=== PATIENT | female | born 1990 | race Two or more races ===

== ENCOUNTER → 2017-03-03 | Outpatient (CLI) | payer SELFPAY ==
--- NOTE | 2017-03-03 15:22 | RADIOLOGY REPORT (SQ) ---
EXAM DESCRIPTION: U/S OB 14+ TRNABD 1GES W/O DOP COMPLETED DATE/TIME: 03/03/2017 11:35 am REASON FOR STUDY: ENCTR FOR SUPERVISION OF NORMAL 1ST , 2ND TRIMESTER (Z34.02) Z34.02 ENCN TR FOR SUPRVSN OF NORMAL FIRST PREG, SECOND TRIME COMPARISON: None. TECHNIQUE: Static and Dynamic grayscale imaging performed of gravid uterus using transabdominal appr oach. Additional selected color Doppler and spectral images recorded. All stored on PACS. LIMITATIONS: None. FINDINGS: EGA: 20 weeks 6 days ANTONY: 07/15/2017 EFW: 393 g grams PERCENTILE: Not calculated MEJIA: Largest pocket 4.5 cm PLACENTA: Anterior grade 1 PRESENTATION: Cephalic. ANATOMY: HEART RATE: 152 beats per minute. FOUR CHAMBER HEART: Visualized. THREE VESSEL CORD: Yes. CORD INSERTION: Visualized. KIDNEYS AND BLADDER: Visualized. Appear normal. STOMACH: Visualized. Appears normal. SPINE: Normal as visualized. BRAIN AND LATERAL VENTRICLES: Visualized. Appear normal. OTHER: No other significant finding. MATERNAL ADNEXA: Maternal ovaries not visualized. CERVICAL LENGTH: 3.5 cm in length Closed. OTHER: No other significant finding. IMPRESSION: LIVING INTRAUTERINE . ESTIMATED GESTATIONAL AGE 20 weeks 6 days NO VISUALIZED ANOMALIES. Trimester of : Second trimester - 13 weeks 1 day to 27 weeks 6 days. TECHNICAL DOCUMENTATION: JOB ID: [id number] [employer]- All Rights Reserved
== END ==
LOC: RAD 10:32
PROVIDERS: ATTEND Nurse Practitioner Women's Health
DX: Z34.02 Encounter for supervision of normal first pregnancy, second trimester (principal)
CPT/HCPCS: 76805

== ENCOUNTER → 2017-04-21 | Outpatient (CLI) | payer SELFPAY ==
--- NOTE | 2017-04-21 14:26 | RADIOLOGY REPORT (SQ) ---
EXAM DESCRIPTION: U/S OB 14+ TRNABD 1GES W/O DOP COMPLETED DATE/TIME: 04/21/2017 1:52 pm REASON FOR STUDY: ENCOUNTER FOR SUPERVISON OF OTHER NORMAL PREGANCNY, SECOND TRIMESTER Z34.03 ENCNT R FOR SUPRVSN OF NORMAL FIRST PREG, THIRD TRIMES COMPARISON: 03/03/2017. TECHNIQUE: Limited transabdominal grayscale ultrasound for evaluation of specific requested obstetri zelda parameters. LIMITATIONS: None. FINDINGS: PLACENTA: Anterior. CERVICAL LENGTH: 4.9 cm. Closed. MEJIA: 9.3 cm. FHR: 168 beats per minute. PRESENTATION: Breech. OTHER: No other significant findings. IMPRESSION: LIMITED OBSTETRICAL ULTRASOUND WITH MEASURED PARAMETERS DELINEATED ABOVE. Trimester of : Third trimester - 28 weeks to delivery. TECHNICAL DOCUMENTATION: JOB ID: [id number] [employer]- All Rights Reserved Reading location - IP/workstation name: [email or web address]
== END ==
LOC: RAD 12:57
PROVIDERS: ATTEND Nurse Practitioner Women's Health
DX: Z34.03 Encounter for supervision of normal first pregnancy, third trimester (principal)
CPT/HCPCS: 76805

== ENCOUNTER 2017-07-11 15:55 | Inpatient (IN) | payer SELFPAY ==
[2017-07-11] MEDS ORDERED: RINGERS SOLUTION,LACTATED 1,000 ML IV PRN (16:12)
[2017-07-11 16:39] LABS: APPEARANCE,URINE SLIGHTLY-CLOUDY; BILIRUBIN,URINE NEGATIVE (NEGATIVE); COLOR,URINE YELLOW; GLUCOSE, URINE NEGATIVE (NEGATIVE); KETONES,URINE TRACE mg/dL (NEGATIVE); LEUKOCYTE ESTERASE,URINE NEGATIVE (NEGATIVE); NITRITE,URINE NEGATIVE (NEGATIVE); PROTEIN,URINE NEGATIVE (NEGATIVE); URINE SPECIFIC GRAVITY 1.005; UROBILINOGEN,URINE NEGATIVE mg/dL (<2.0)
[2017-07-11 16:54] LABS: ABSOLUTE EOSINOPHILS # (AUTO) 0.1 10^3/uL (0.0-0.6); ABSOLUTE LYMPHOCYTES (AUTO) 1.7 10^3/uL (0.5-4.7); ABSOLUTE MONOCYTES (AUTO) 0.5 10^3/uL (0.1-1.4); ABSOLUTE NEUT (AUTO) 5.9 10^3/uL (1.7-8.2); BASOPHILS % (AUTO) 0.4 % (0-2); EOSINOPHILS % (AUTO) 0.9 % (0-6); HEMATOCRIT 34.3 % (36.0-47.0); HEMOGLOBIN 11.6 g/dL (12.0-15.5); LYMPHOCYTES % (AUTO) 20.8 % (13-45); MEAN CORPUSCULAR HGB CONC 33.7 g/dL (32.0-36.0); MEAN CORPUSCULAR VOLUME 86 fl (80-97); MONOCYTES % (AUTO) 5.7 % (3-13); PLATELET COUNT 305 10^3/uL (150-450); RED BLOOD COUNT 3.99 10^6/uL (3.72-5.28); RED CELL DISTRIBUTION WIDTH 13.7 % (11.5-14.0); SEGMENTED NEUTROPHILS % (AUTO) 72.2 % (42-78); TOTAL CELLS COUNTED % (AUTO) 100 %; WHITE BLOOD COUNT 8.2 10^3/uL (4.0-10.5)
[2017-07-11 16:56] LABS: URINE AMPHETAMINES SCREEN NEGATIVE; URINE BARBITURATES SCREEN NEGATIVE; URINE BENZODIAZEPINES SCREEN NEGATIVE; URINE COCAINE SCREEN NEGATIVE; URINE MARIJUANA (THC) SCREEN NEGATIVE; URINE METHADONE SCREEN NEGATIVE; URINE PHENCYCLIDINE SCREEN NEGATIVE
[2017-07-11] MEDS ORDERED: MISOPROSTOL 0.2 MG TABLET PR PRN (18:08)
[2017-07-11] MEDS ORDERED: LIDOCAINE 1% INJ-PF (10 MG/ML) 30 ML SDV INJ PRN (18:08)
[2017-07-11] MEDS ORDERED: OXYTOCIN/NORMAL SALINE 20 UNIT/1,000 ML RTUINJ IV PRN (18:10)
[2017-07-11] MEDS ORDERED: OXYTOCIN/NORMAL SALINE 20 UNIT/1,000 ML RTUINJ ONE ×2 (19:11→20:24)
[2017-07-11] MEDS: OXYTOCIN/NORMAL SALINE 20 UNIT/1,000 ML RTUINJ IV PRN (19:36)
[2017-07-11] MEDS ORDERED: MISOPROSTOL 0.2 MG TABLET ONE (20:23)
[2017-07-11] MEDS ORDERED: LIDOCAINE 1% INJ-PF (10 MG/ML) 30 ML SDV ONE (20:24)
[2017-07-11] MEDS ORDERED: PROMETHAZINE HCL INJ 25 MG/1 ML VIAL ONE (23:36)
[2017-07-11] MEDS ORDERED: NALBUPHINE HCL INJ 10 MG/1 ML AMPULE ONE (23:36)
[2017-07-11] MEDS ORDERED: PROMETHAZINE HCL INJ 25 MG/1 ML VIAL IV ONE (23:43)
[2017-07-11] MEDS ORDERED: NALBUPHINE HCL INJ 10 MG/1 ML AMPULE INJ ONE (23:43)
--- NOTE | 2017-07-12 04:47 | Admission Physical ---
Datetime Report Generated by CPN: 07/12/2017 04:47 CURRENT ADMISSION Chief Complaint: Uterine Contractions; Suspected Ruptured Membranes Indication for Induction: PROM Admit Impression : Term, Intrauterine ; No Active Labor; Ruptured Membranes Admit Plan: Admit to Unit; Initiate Labor Induction Protocol ALLERGIES Medication Allergies: Yes Medication Allergies: doxycycline (07/11/2017) Latex: No Latex Allergies OBSTETRICAL HISTORY EDC: 07/13/2017 00:00 : 1 Para: 0 Term: 0 : 0 SAB: 0 IAB: 0 Ectopic: 0 Livin Cesareans: 0 VBACs: 0 Multiple Births: 0 Gestational Diabetes: No Rh Sensitization: No Incompetent Cervix: No CUAUHTEMOC: No Infertility: No ART Treatment: No Uterine Anomaly: No IUGR: No Hx Previous C/S: No Macrosomia: No Hx Loss/Stillborn: No PIH: No Hx : No Placenta Previa/Abruption: No Depression/PP Depression: No PTL/PROM: No Post Hemorrhage: No Current Procedures: Ultrasound Obstetrical History Comments: G1-Current SEE RECORDS Alcohol: No Marijuana : No Cocaine: No Other Illicit Drugs: No Cigarettes: Never Smoker. 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: No Heart Disease: No Hosp/Surgery: No Autoimmune Disorder: No Anesthetic Complications: No Kidney Disease: No Abnormal Pap Smear: Yes Neuro/Epilepsy: No Psychiatric Disorders: No Other Medical Diseases: No Hepatitis/Liver Disease: No Significant Family History: No Varicosities/Phlebitis: No Trauma/Violence : No Thyroid Dysfunction: No INFECTIOUS HISTORY Gonorrhea: No Genital Herpes: No Chlamydia: No Tuberculosis: No Syphilis: No Hepatitis: No HIV/AIDS Exposure: No Rash or Viral Illness: No HPV: No PHYSICAL EXAM General: Normal HEENT: Normal Neurologic: Normal Thyroid: Normal Heart: Normal Lungs: Normal Breast: Normal Back: Normal Abdomen: Normal Genitourinary Exam: Normal Extremities: Normal DTRs: Normal Pelvic Type: Adequate Vital Signs: Reviewed; Within Normal Limits VAGINAL EXAM Dilatation: 2 Effacement: 50 Station: -2 MEMBRANES Pooling: Positive Membranes: Ruptured Amniotic Fluid Color: Clear FETUS A EGA: 39.5 Monitoring: External US FHR- Baseline: 130 Variability: Moderate 6-25bpm Accelerations: 15X15 Decelerations: None FHR Category: Category I Estimated Weight (gm): 3800 Presentation: Vertex PLANS FOR LABOR AND DELIVERY Labor and Delivery: None Pain Management: None Feeding Preference: Both Benefit of Breast Feed Discussed: Yes Circumcision: N/A INFORMED CONSENT Signature: with User ID: Ruben
[2017-07-12] MEDS ORDERED: PROMETHAZINE HCL INJ 25 MG/1 ML VIAL IV PRN (04:53)
[2017-07-12] MEDS ORDERED: MEASLES,MUMPS&RUBELLA VACC/PF 0.5 ML VIAL SUBCUT PRN (04:53)
[2017-07-12] MEDS ORDERED: MAGNESIUM HYDROXIDE SUSP 30 ML UDCUP PO PRN (04:53)
[2017-07-12] MEDS ORDERED: DIBUCAINE 1% OINTMENT 28 GM TP PRN (04:53)
[2017-07-12] MEDS ORDERED: BENZOCAINE/MENTHOL AEROSOL SPRAY 56 ML TOP PRN (04:53)
[2017-07-12] MEDS ORDERED: ACETAMINOPHEN WITH CODEINE #3 TABLET PO PRN ×2 (04:53)
[2017-07-12] MEDS ORDERED: PSEUDOEPHEDRINE HCL 30 MG TABLET PO PRN (04:53)
[2017-07-12] MEDS ORDERED: PROMETHAZINE HCL 25 MG SUPP.RECT PR PRN (04:53)
[2017-07-12] MEDS ORDERED: NA PHOS,M-B/NA PHOS,DI-BA (ADULT) 133 ML ENEMA PR PRN (04:53)
[2017-07-12] MEDS ORDERED: ZOLPIDEM TARTRATE 5 MG TABLET PO PRN (04:53)
[2017-07-12] MEDS ORDERED: DIPHENHYDRAMINE HCL 25 MG CAPSULE PO PRN (04:53)
[2017-07-12] MEDS ORDERED: ACETAMINOPHEN 650 MG SUPP.RECT PR PRN (04:53)
[2017-07-12] MEDS ORDERED: GLYCERIN/WITCH HAZEL LEAF 1 EACH MED..PAD TP PRN (04:53)
[2017-07-12] MEDS ORDERED: OXYTOCIN/NORMAL SALINE 20 UNIT/1,000 ML RTUINJ IV PRN (04:53)
[2017-07-12] MEDS ORDERED: PROMETHAZINE HCL 25 MG TABLET PO PRN (04:53)
[2017-07-12] MEDS ORDERED: DIPH/PERTUSS(ACELL)/TETANUS VAC/PF 0.5 ML SYR (>=10YO) IM PRN (04:53)
[2017-07-12] MEDS: OXYTOCIN/NORMAL SALINE 20 UNIT/1,000 ML RTUINJ IV PRN (05:54)
[2017-07-12] MEDS: IBUPROFEN 800 MG TABLET PO SCH ×3 (05:54→22:11)
--- NOTE | 2017-07-12 06:12 | Warning Signs in Babies ---
VOD Warning Signs Datetime Report Generated by [facility]: 07/12/2017 06:11 VOD#608 -Warning Signs in Babies: Viewed with Parent(s)/Family (07/11/2017 16:08:Gillian Gordillo RN)
[2017-07-12] MEDS ORDERED: IBUPROFEN 800 MG TABLET ONE (06:56)
--- NOTE | 2017-07-12 09:27 | PDOC PROGRESS REPORT ---
Subjective-OB Progress Note for:: 07/12/17 Subjective: Day #0 s/p voiding without difficultly, lochia is stable, pain well controlled, denies concerns, bonding well with baby. Physical Exam (OB) Vital Signs: Temp Pulse Resp BP Pulse Ox 98.2 F 86 20 108/57 L 98 07/12/17 08:23 07/12/17 08:23 07/12/17 08:23 07/12/17 08:23 07/12/17 08:23 Intake & Output 07/11/17 07/12/17 07/13/17 06:59 06:59 06:59 Weight 72.575 kg - Lochia Lochia Amount: Small 10-25 ml Lochia Color: Rubra/Red - Abdomen Description: Soft Fundal Description: Firm Fundal Height: u/u - u/2 Objective-Diagnostic Laboratory: 07/11/17 16:34 07/11/17 07/11/17 07/11/17 16:00 16:34 16:34 WBC 8.2 RBC 3.99 Hgb 11.6 L Hct 34.3 L MCV 86 MCH 29.0 MCHC 33.7 RDW 13.7 Plt Count 305 Seg Neutrophils % 72.2 Lymphocytes % 20.8 Monocytes % 5.7 Eosinophils % 0.9 Basophils % 0.4 Absolute Neutrophils 5.9 Absolute Lymphocytes 1.7 Absolute Monocytes 0.5 Absolute Eosinophils 0.1 Absolute Basophils 0.0 Urine Color YELLOW Urine Appearance SLIGHTLY-CLOUDY Urine pH 6.0 Ur Specific [place] 1.005 Urine Protein NEGATIVE Urine Glucose (UA) NEGATIVE Urine Ketones TRACE H Urine Blood MODERATE H Urine Nitrite NEGATIVE Ur Leukocyte Esterase NEGATIVE Blood Type A NEGATIVE Antibody Screen POSITIVE Assessment and Plan(PN) - Assessment and Plan (1) Vaginal delivery Is this a current diagnosis for this admission?: Yes Plan: routine pp care (2) Rh negative status during Qualifiers: Trimester: third trimester Qualified Code(s): O09.893 - Supervision of other high risk pregnancies, third trimester; Z67.91 - Unspecified blood type, Rh negative; Z67.91 - Unspecified blood type, Rh negative Is this a current diagnosis for this admission?: Yes Plan: rhogam as needed - Time Spent with Patient Time with patient: Less than 15 minutes Critical Time spent with patient: Less than 15 minutes Medications reviewed and adjusted accordingly: Yes - Disposition Anticipated Discharge: Home Within: within 24 hours
--- NOTE | 2017-07-12 09:43 | Delivery Summary ---
Del Sum A-C Datetime Report Generated by CPN: 07/12/2017 09:43 DELIVERY PERSONNEL DELIVERY PERSONNEL: [id number] Delivery Doctor:: Clair Erickson MD Labor and Delivery Nurse:: Gillian Tripathi RN Labor and Delivery Nurse:: Ambreen Roberts RN Nursery Nurse:: Blanca Beth RN Security Ambassador/PRIEST: Jenifer Dc, ST MATERNAL INFORMATION Delivery Anesthesia: None Medications After Delivery: Pitocin Bolus-Please Comment; Pitocin Drip 20 Units/1000ml NSS Estimated Blood Loss (ml): 150 Maternal Complications: None LABOR SUMMARY EDC: 07/13/2017 00:00 No. Babies in Womb: 1 Attempted: No Labor Anesthesia: IV Sedation LABOR INFORMATION Reason for Induction: Not Applicable Onset of Labor: 07/11/2017 15:00 Complete Dilatation: 07/12/2017 03:30 Oxytocin: Augmentation Group B Beta Strep: negative Steroids Given: None Reason Steroids Not Administered: Not Applicable MEMBRANES Membranes Rupture Method: Spontaneous Rupture of Membranes: 07/11/2017 15:03 Length of Rupture (hr): 13.32 Amniotic Fluid Color: Clear Amniotic Fluid Amount: Large Amniotic Fluid Odor: Normal STAGES OF LABOR Stage 1 hr: 12 Stage 1 min: 30 Stage 2 hr: 0 Stage 2 min: 52 Stage 3 hr: -3 Stage 3 min: -56 Total Time in Labor hr: 9 Total Time in Labor min: 26 VAGINAL DELIVERY Episiotomy: Left Mediolateral Laceration #1: Vaginal Laceration Extension #1: Second Degree Laceration Repair: Yes Sponge Count Correct: Yes CSECTION DELIVERY Primary Indication: N/A Secondary Indication: N/A CSection Incision: N/A BABY A INFORMATION Infant Delivery Date/Time: 07/12/2017 04:22 Method of Delivery: Vaginal Born in Route : No : N/A Forceps: N/A Vacuum Extraction: Failed Shoulder Dystocia : No ASSISTED DELIVERY BABY A Indication for Assisted Delivery: maternal exhaustion Catheter Prior to Procedure: No Vacuum Number of Pulls: 0 Vacuum Number of PopOffs: 0 Vacuum/Forceps Comment: failed vaccuum due to hair. unable to obtain suction. PRESENTATION/POSITION BABY A Presentation: Cephalic Cephalic Presentation: Vertex Vertex Position: Left Occipital Anterior Breech Presentation: N/A PLACENTA INFORMATION BABY A Placenta Delivery Time : 07/12/2017 00:26 Placenta Method of Delivery: Spontaneous Placenta Status: Delivered SCORES BABY A Heart Rate 1 min: >100 bpm Resp Effort 1 min: Good Cry Reflex Irritability 1 min: Cough or Sneeze or Pulls Away Muscle Tone 1 min: Active Motion Color 1 min: Blue/Pale SCORE 1 MIN: 8 Heart Rate 5 min: >100 bpm Resp Effort 5 min: Good Cry Reflex Irritability 5 min: Cough or Sneeze or Pulls Away Muscle Tone 5 min: Active Motion Color 5 min: Body [place], Extremities Blue Resuscitation Effort 5 min: Tactile Stimulation SCORE 5 MIN: 9 INFANT INFORMATION BABY A Gestational Age at Delivery: 39.6 Gestational Status: Full Term- 39- 40.6 Weeks Infant Outcome : Liveborn Condition : Stable Sex: Female IDENTIFICATION BABY A Verification Date/Time: 07/12/2017 04:54 ID Band Number: [id number] Mother's Name Verified: Yes RN Verifying : rn carmen Additional Verifying Personnel: rn ring WEIGHT/LENGTH BABY A Birthweight (gm): 3480 Weight (lb): 7 Infant Weight (oz): 11 Length (in): 20.00 Length (cm): 50.80 CORD INFORMATION BABY A No. Cord Vessels: 3 Nuchal Cord : N/A Cord Blood Taken: Yes-For Eval (Mom's Blood Type - or O+) Infant Suction: Mouth ASSESSMENT BABY A Complications: Multiple Variable Decels Physical Findings at Delivery: [place] Infant Respirations: Appears Normal Skin to Skin: Yes Online Marketing Strategist/ALS Called : No Infant Care By: RN Beth Transferred To: Remains with Mother BABY B INFORMATION : N/A SIGNATURES Signature: with User ID: Ruben
[2017-07-12] MEDS ORDERED: DSS PO SCH (10:00)
[2017-07-12] MEDS ORDERED: [UNRECOGNIZED DRUG - OTHER] PO SCH (10:00)
[2017-07-12] MEDS ORDERED: FOLATE PO SCH (10:00)
[2017-07-12] MEDS ORDERED: DHA PO SCH (10:00)
[2017-07-12] MEDS ORDERED: FAMOTIDINE 20 MG TABLET PO SCH (10:00)
[2017-07-12] MEDS ORDERED: PNV PO SCH (10:00)
[2017-07-12] MEDS ORDERED: IRON PO SCH (10:00)
[2017-07-12] MEDS: PRENATAL VITAMIN W DHA CAPSULE PO SCH (10:18)
[2017-07-12] MEDS: DOCUSATE SODIUM 100 MG CAPSULE PO SCH ×2 (10:18→17:17)
[2017-07-12] MEDS: FERROUS SULFATE 325 MG TABLET PO SCH ×2 (10:18→17:17)
[2017-07-12] MEDS: SENNOSIDES/DOCUSATE 8.6-50 MG 1 EACH TABLET PO SCH (10:25)
[2017-07-12] MEDS: FAMOTIDINE 20 MG TABLET PO SCH (22:13)
[2017-07-13] MEDS: IBUPROFEN 800 MG TABLET PO SCH (05:45)
[2017-07-13 07:57] LABS: HEMATOCRIT 32.1 % (36.0-47.0); HEMOGLOBIN 10.4 g/dL (12.0-15.5); MEAN CORPUSCULAR HEMOGLOBIN 28.4 pg (27.0-33.4); MEAN CORPUSCULAR HGB CONC 32.5 g/dL (32.0-36.0); MEAN CORPUSCULAR VOLUME 87 fl (80-97); PLATELET COUNT 320 10^3/uL (150-450); RED BLOOD COUNT 3.68 10^6/uL (3.72-5.28); RED CELL DISTRIBUTION WIDTH 14.4 % (11.5-14.0); WHITE BLOOD COUNT 13.4 10^3/uL (4.0-10.5)
[2017-07-13] MEDS: SENNOSIDES/DOCUSATE 8.6-50 MG 1 EACH TABLET PO SCH (09:12)
[2017-07-13] MEDS: FERROUS SULFATE 325 MG TABLET PO SCH ×2 (09:12→19:33)
[2017-07-13] MEDS: PRENATAL VITAMIN W DHA CAPSULE PO SCH (09:13)
[2017-07-13] MEDS: DOCUSATE SODIUM 100 MG CAPSULE PO SCH ×2 (09:13→19:34)
[2017-07-13] MEDS: FAMOTIDINE 20 MG TABLET PO SCH (09:15)
--- NOTE | 2017-07-13 11:30 | PDOC PROGRESS REPORT ---
Subjective-OB Progress Note for:: 07/13/17 Subjective: 27yo G1 now P1 s/p ppd 1. Pt. ambulating, and voiding without difficulty. denies SOB/chest pain/dizziness or other concerns at this time. Physical Exam (OB) Vital Signs: Temp Pulse Resp BP Pulse Ox 97.9 F 79 16 118/65 99 07/13/17 08:00 07/13/17 08:00 07/13/17 08:00 07/13/17 08:00 07/13/17 08:00 Intake & Output 07/12/17 07/13/17 07/14/17 06:59 06:59 06:59 Weight 72.575 kg - General General Appearance: Appears well In distress: None - PIH/Pre-Eclampsia Headache: Absent Epigastric Pain: No Visual Changes: No - Episiotomy/Laceration Site Condition: Well Approximated - Lochia Lochia Amount: Small 10-25 ml Lochia Color: Rubra/Red - Abdomen Description: Soft, Round Hernia Present: No Fundal Description: Firm, Midline Fundal Height: u/u - u/2 - Respiratory Respiratory Status: No respiratory distress - Extremities Upper extremity: Normal inspection Lower extremities: Normal inspection - Neurological Cognition: Normal Orientation: AAOx4 - Psychological Associated symptoms: Normal affect, Normal mood Objective-Diagnostic Laboratory: 07/13/17 07:25 07/13/17 07:25 WBC 13.4 H RBC 3.68 L Hgb 10.4 L Hct 32.1 L MCV 87 MCH 28.4 MCHC 32.5 RDW 14.4 H Plt Count 320 Assessment and Plan(PN) - Assessment and Plan (1) Acute blood loss anemia Is this a current diagnosis for this admission?: Yes Plan: Increase dietary iron and feso4 bid. (2) Rh negative status during Qualifiers: Trimester: third trimester Qualified Code(s): O09.893 - Supervision of other high risk pregnancies, third trimester; Z67.91 - Unspecified blood type, Rh negative; Z67.91 - Unspecified blood type, Rh negative Is this a current diagnosis for this admission?: Yes Plan: needs rhogam prior to discharge (3) Vaginal delivery Is this a current diagnosis for this admission?: Yes Plan: Routine pp care. - Time Spent with Patient Time with patient: Less than 15 minutes Medications reviewed and adjusted accordingly: Yes - Disposition Anticipated Discharge: Home Within: within 24 hours
[2017-07-13 16:39] LABS: FETAL RBC COUNT 0
[2017-07-13 16:41] LABS: KB INTERPRETATION NEGATIVE (NEGATIVE)
[2017-07-14] MEDS: FAMOTIDINE 20 MG TABLET PO SCH ×2 (03:10→11:43)
[2017-07-14] MEDS: IBUPROFEN 800 MG TABLET PO SCH ×2 (03:10→06:02)
--- NOTE | 2017-07-14 09:13 | PDOC DISCHARGE SUMMARY ---
Final Diagnosis Discharge Date: 07/14/17 - Final Diagnosis (1) Vaginal delivery Is this a current diagnosis for this admission?: Yes (2) Rh negative status during Is this a current diagnosis for this admission?: Yes Discharge Data - Discharge Medication Prescriptions: Docusate Sodium [Colace 100 mg Capsule] 100 mg PO BID #60 capsule Ferrous Sulfate [Feosol 325 mg Tablet] 325 mg PO BID #60 tablet Ibuprofen [Motrin 800 mg Tablet] 800 mg PO Q8 #60 tablet Home Medications: Pnv 102/Iron/Folate 1/Dss/Dha [Vitafol Fe+ Docusate Combo Pck] 1 tab PO DAILY Docusate Sodium [Colace 100 mg Capsule] 100 mg PO BID #60 capsule 07/14/17 Ferrous Sulfate [Feosol 325 mg Tablet] 325 mg PO BID #60 tablet 07/14/17 Ibuprofen [Motrin 800 mg Tablet] 800 mg PO Q8 #60 tablet 07/14/17 Gestational Age: 39.6 Reason(s) for Admission: Onset of Labor Procedures: NST Intrapartum Procedure(s): Spontaneous Vaginal Delivery Complication(s): Laceration-Perineal Laceration-Degree: 2nd - Riva Data Baby 1 Female at 1 minute: 8 at 5 minutes: 9 Weight: 3480 kg Home with Mother: Yes Complications: No - Diagnosis Test Laboratory: Temp Pulse Resp BP Pulse Ox 98.4 F 88 16 106/71 100 07/14/17 07:49 07/14/17 07:49 07/14/17 07:49 07/14/17 07:49 07/14/17 07:49 07/11/17 07/11/17 07/13/17 16:00 16:34 07:25 RBC 3.99 3.68 L Hgb 11.6 L 10.4 L Hct 34.3 L 32.1 L Urine Opiates Screen NEGATIVE - Discharge information/Instructions Discharge Activity: Activity As Tolerated, Pelvic Rest, No tub bath Discharge Diet: Regular Disposition: HOME, SELF-CARE Follow up with: [facility] in: 4, Weeks - ochd follow up
[2017-07-14] MEDS: FERROUS SULFATE 325 MG TABLET PO SCH (10:43)
[2017-07-14] MEDS: DOCUSATE SODIUM 100 MG CAPSULE PO SCH (10:43)
[2017-07-14] MEDS: SENNOSIDES/DOCUSATE 8.6-50 MG 1 EACH TABLET PO SCH (11:43)
[2017-07-14] MEDS: PRENATAL VITAMIN W DHA CAPSULE PO SCH (11:43)
[2017-07-14 12:32] VITALS: BP 108/57
== END 2017-07-14 14:14 | disposition home or self-care (01) | DRG 775 ==
LOC: LC 15:55 → LR 16:15 → 2S 07-12 07:26
PROVIDERS: ADMIT Obstetrics & Gynecology; ATTEND Obstetrics & Gynecology
PROC: 10E0XZZ Delivery of Products of Conception, External Approach (ICD-10-PCS; principal; 2017-07-11)
PROC: 0KQM0ZZ Repair Perineum Muscle, Open Approach (ICD-10-PCS; 2017-07-11)
PROC: 0W8NXZZ Division of Female Perineum, External Approach (ICD-10-PCS; 2017-07-11)
PROC: 4A1HXCZ Monitoring of Products of Conception, Cardiac Rate, External Approach (ICD-10-PCS; 2017-07-11)
PROC: 3E0234Z Introduction of Serum, Toxoid and Vaccine into Muscle, Percutaneous Approach (ICD-10-PCS; 2017-07-14)
DX: O76 Abnormality in fetal heart rate and rhythm complicating labor and delivery (principal); D62 Acute posthemorrhagic anemia; O70.1 Second degree perineal laceration during delivery; O66.5 Attempted application of vacuum extractor and forceps; O75.81 Maternal exhaustion complicating labor and delivery; O99.02 Anemia complicating childbirth; O26.893 Other specified pregnancy related conditions, third trimester; Z3A.39 39 weeks gestation of pregnancy; Z67.41 Type O blood, Rh negative; Z37.0 Single live birth
CPT/HCPCS: 36415; 80307; 81005; 85025; 85027; 85460; 85461; 86592; 86850; 86870; 86900; 86901; 86920; 86922; J2300; J2550; J2590; J2790; J3490